=== PATIENT | male | born 1965 | race Caucasian/White ===

== ENCOUNTER 2023-03-13 10:57 | Outpatient (CLI) | payer MEDICARE, SELFPAY ==
[2023-03-13 19:41] LABS: Basophils Absolute Auto 0.1 K/mm3 (0.0-0.1); Basophils Percent Auto 1.2 % (0.2-1.2); Eosinophils Absolute Auto 0.2 K/mm3 (0-0.3); Eosinophils Percent Auto 3.4 % (0-4.4); Hematocrit 50.6 % (42.0-52.0); Hemoglobin 16.3 g/dL (14.0-18.0); Immature Granulocyte Absolute 0.01 K/mm3 (0.00-0.031); Immature Granulocyte Percent A 0.2 % (0-0.5); Lymphocytes Absolute Auto 1.71 K/mm3 (0.9-3.2); Lymphocytes Percent Auto 29.2 % (18.3-44.2); Mean Corpuscular HGB Conc 32.2 g/dl (32-36); Mean Corpuscular Hemoglobin 30.4 pg (26-34); Mean Corpuscular Volume 94.2 fl (80-100); Monocytes Absolute Auto 0.4 K/mm3 (0.1-0.6); Monocytes Percent Auto 7.2 % (2.6-8.5); Neutrophils Absolute Auto 3.4 K/mm3 (1.3-6.7); Neutrophils Percent Auto 58.8 % (45.5-73.1); Platelet Count Result 432 k/mm3 (150-375); Red Blood Count 5.37 M/mm3 (4.6-6.20); Red Cell Distribution Width 14.4 % (11.5-14.5); White Blood Count 5.9 K/mm3 (4.5-10.0)
[2023-03-13 19:51] LABS: Vitamin D 25 Hydroxy 23.1 ng/mL
[2023-03-13 19:57] LABS: Prostate Specific Antigen 1.7 ng/mL (< OR = 4.0)
[2023-03-13 20:05] LABS: Thyroid Stimulating Hormone Reflex 0.856 uIU/mL (0.465-4.68)
[2023-03-13 20:30] LABS: Alanine Aminotransferase 34 U/L (6-50); Albumin Level 4.9 g/dL (3.5-5.1); Alkaline Phosphatase 65 U/L (38-126); Anion Gap 8 mmol/L (8-16); Aspartate Amino Transferase 28 U/L (17-59); Bilirubin,Total 0.6 mg/dL (0.2-1.3); Blood Urea Nitrogen 12 mg/dL (9-20); Calcium 9.3 mg/dL (8.4-10.2); Carbon Dioxide 28 mmol/L (22-30); Chloride 103 mmol/L (98-107); Cholesterol 215 mg/dL (0-200); Estimated Glomerular Filt Rate > 60; Glucose 105 mg/dL (65-110); HDL Direct 46 mg/dL; Potassium 4.6 mmol/L (3.4-5.0); Sodium 139 mmol/L (137-145); Triglycerides 138 mg/dL (<150)
[2023-03-13 20:35] LABS: LDL Cholesterol Direct 122 mg/dL
[2023-03-18 18:21] LABS: Testosterone Free 72.9 pg/mL (35.0-155.0); Testosterone Total 450 ng/dL (250-1100)
== END 2023-03-13 10:58 | disposition home or self-care (01) ==
LOC: ANHGOSHLAB 10:59
PROVIDERS: PCP Family Medicine; Visit Provider Family Medicine
DX: R73.03 Prediabetes (principal); Z79.899 Other long term (current) drug therapy; Z12.5 Encounter for screening for malignant neoplasm of prostate; E29.1 Testicular hypofunction; Z13.29 Encounter for screening for other suspected endocrine disorder; E53.8 Deficiency of other specified B group vitamins; E55.9 Vitamin D deficiency, unspecified
CPT/HCPCS: 36415; 80053; 80061; 82306; 82607; 83036; 84153; 84402; 84403; 84443; 85025; G0103

== ENCOUNTER 2023-03-25 10:45 | Outpatient (CLI) | payer MEDICARE, SELFPAY ==
--- NOTE | ~2023-03-25 | CT_ITS ---
EXAMINATION:CT lung screening DATE: 03/25/2023 11:03 INDICATION: Tobacco use. Current smoker with 30 pack year history. TECHNIQUE: Computed tomography (CT) of the chest was performed without intravenous contrast. Automate d exposure control and iterative reconstruction technique were employed. The dose-length product (DLP ) was 92.93 mGy-cm. COMPARISON: CT abdomen 01/04/2016 FINDINGS: There is mild emphysema. No pleural effusion. The heart size is normal. There are coronary artery calcifications. No pericardial effusion. There is a gallstone in the gallbladder, which is nor mal in size. There are changes of disc replacement at C6-C7. IMPRESSION: 1. Lung-RADS category 1: Negative. Continue annual screening with noncontrast low-dose chest CT in 12 months. Reviewed, dictated and finalized at location A. IMPRESSION: 1. Lung-RADS category 1: Negative. Continue annual screening with noncontrast l ow-dose chest CT in 12 months.
== END 2023-03-25 10:46 | disposition home or self-care (01) ==
PROVIDERS: PCP Family Medicine; Visit Provider Family Medicine
DX: Z12.2 Encounter for screening for malignant neoplasm of respiratory organs (principal); F17.210 Nicotine dependence, cigarettes, uncomplicated
CPT/HCPCS: 71271

== ENCOUNTER 2023-10-04 10:16 | Outpatient (CLI) | payer MEDICARE, SELFPAY ==
[2023-10-04 12:01] LABS: Basophils Absolute Auto 0.1 K/mm3 (0.0-0.1); Basophils Percent Auto 1.1 % (0.2-1.2); Eosinophils Absolute Auto 0.3 K/mm3 (0-0.3); Eosinophils Percent Auto 5.5 % (0-4.4); Hematocrit 54.7 % (42.0-52.0); Hemoglobin 17.6 g/dL (14.0-18.0); Immature Granulocyte Absolute 0.01 K/mm3 (0.00-0.031); Immature Granulocyte Percent A 0.2 % (0-0.5); Lymphocytes Absolute Auto 1.71 K/mm3 (0.9-3.2); Lymphocytes Percent Auto 31.6 % (18.3-44.2); Mean Corpuscular HGB Conc 32.2 g/dl (32-36); Mean Corpuscular Hemoglobin 30.2 pg (26-34); Mean Platelet Volume 9.4 fl (7.4-10.4); Monocytes Absolute Auto 0.5 K/mm3 (0.1-0.6); Monocytes Percent Auto 8.3 % (2.6-8.5); Neutrophils Absolute Auto 2.9 K/mm3 (1.3-6.7); Neutrophils Percent Auto 53.3 % (45.5-73.1); Platelet Count Result 460 k/mm3 (150-375); Red Blood Count 5.82 M/mm3 (4.6-6.20); Red Cell Distribution Width 13.4 % (11.5-14.5); White Blood Count 5.4 K/mm3 (4.5-10.0)
[2023-10-04 12:17] LABS: Alanine Aminotransferase 33 U/L (6-50); Alkaline Phosphatase 64 U/L (38-126); Anion Gap 4 mmol/L (8-16); Aspartate Amino Transferase 40 U/L (17-59); Bilirubin,Total 1.3 mg/dL (0.2-1.3); Blood Urea Nitrogen 11 mg/dL (9-20); Carbon Dioxide 34 mmol/L (22-30); Chloride 101 mmol/L (98-107); Cholesterol 241 mg/dL (0-200); Estimated Glomerular Filt Rate > 60; Glucose 125 mg/dL (65-110); HDL Direct 47 mg/dL; Sodium 139 mmol/L (137-145); Triglycerides 160 mg/dL (<150)
[2023-10-04 12:32] LABS: LDL Cholesterol Direct 139 mg/dL
[2023-10-04 12:38] LABS: Thyroid Stimulating Hormone 0.941 uIU/mL (0.465-4.680)
[2023-10-04 17:52] LABS: Hemoglobin A1C 6.2 % (<5.7)
[2023-10-09 09:06] LABS: Testosterone Free 40.4 pg/mL (35.0-155.0); Testosterone Total 321 ng/dL (250-1100)
== END 2023-10-04 10:17 | disposition home or self-care (01) ==
PROVIDERS: PCP Family Medicine; Visit Provider Nurse Practitioner Family
DX: R73.03 Prediabetes (principal); Z00.00 Encounter for general adult medical examination without abnormal findings; Z13.29 Encounter for screening for other suspected endocrine disorder; E29.1 Testicular hypofunction; Z13.220 Encounter for screening for lipoid disorders; I10 Essential (primary) hypertension
CPT/HCPCS: 36415; 80053; 80061; 83036; 84402; 84403; 84443; 85025

== ENCOUNTER 2023-11-29 11:20 | Outpatient (CLI) | payer MEDICARE, SELFPAY ==
[2023-11-29 11:50] LABS: Basophils Percent Auto 0.7 % (0.2-1.2); Eosinophils Absolute Auto 0.2 K/mm3 (0-0.3); Eosinophils Percent Auto 3.8 % (0-4.4); Hematocrit 49.5 % (42.0-52.0); Hemoglobin 16.5 g/dL (14.0-18.0); Immature Granulocyte Absolute 0.02 K/mm3 (0.00-0.031); Immature Granulocyte Percent A 0.3 % (0-0.5); Lymphocytes Absolute Auto 1.75 K/mm3 (0.9-3.2); Lymphocytes Percent Auto 30.4 % (18.3-44.2); Mean Corpuscular HGB Conc 33.3 g/dl (32-36); Mean Corpuscular Hemoglobin 30.1 pg (26-34); Mean Corpuscular Volume 90.3 fl (80-100); Mean Platelet Volume 8.8 fl (7.4-10.4); Monocytes Absolute Auto 0.5 K/mm3 (0.1-0.6); Monocytes Percent Auto 8.7 % (2.6-8.5); Neutrophils Absolute Auto 3.2 K/mm3 (1.3-6.7); Neutrophils Percent Auto 56.1 % (45.5-73.1); Platelet Count Result 436 k/mm3 (150-375); Red Blood Count 5.48 M/mm3 (4.6-6.20); Red Cell Distribution Width 13.8 % (11.5-14.5); White Blood Count 5.8 K/mm3 (4.5-10.0)
[2023-11-29 17:10] LABS: Erythrocyte Sedimentation Rate 5 mm/hr (0-20)
[2023-11-29 19:45] LABS: Alanine Aminotransferase 20 U/L (6-50); Albumin Level 4.7 g/dL (3.5-5.1); Alkaline Phosphatase 62 U/L (38-126); Anion Gap 6 mmol/L (8-16); Aspartate Amino Transferase 54 U/L (17-59); Blood Urea Nitrogen 10 mg/dL (9-20); CRP < 0.5 mg/dL (<1.0); Calcium 9.6 mg/dL (8.4-10.2); Carbon Dioxide 32 mmol/L (22-30); Chloride 102 mmol/L (98-107); Estimated Glomerular Filt Rate > 60; Glucose 78 mg/dL (65-110); Potassium 4.4 mmol/L (3.4-5.0); Sodium 140 mmol/L (137-145)
[2023-12-02 19:41] LABS: Erythropoietin (EPO) 6.3 mIU/mL (2.6-18.5)
[2023-12-04 12:20] LABS: Block/Specimen ID Not Given; CALR Exon 9 Mutation Not Detected (Not Detected); CSF3R Exon 14/17 Mutation Not Detected (Not Detected); JAK2 Exon 12 Mutation Not Detected (Not Detected); JAK2 V617F Mutation Not Detected (Not Detected); MPL Exon 10 Mutation Not Detected (Not Detected); Specimen Source Blood
== END 2023-11-29 11:21 | disposition home or self-care (01) ==
LOC: ANHLAB 11:21
PROVIDERS: PCP Family Medicine; Visit Provider Internal Medicine Hematology & Oncology
DX: D47.3 Essential (hemorrhagic) thrombocythemia (principal)
CPT/HCPCS: 36415; 80053; 81219; 81270; 81279; 81339; 81479; 82668; 82728; 85025; 85652; 86140

== ENCOUNTER 2024-04-03 10:02 | Outpatient (CLI) | payer MEDICARE, SELFPAY ==
[2024-04-03 19:38] LABS: Basophils Absolute Auto 0.1 K/mm3 (0.0-0.1); Basophils Percent Auto 0.8 % (0.2-1.2); Eosinophils Absolute Auto 0.3 K/mm3 (0-0.3); Eosinophils Percent Auto 5.3 % (0-4.4); Hematocrit 51.1 % (42.0-52.0); Hemoglobin 16.4 g/dL (14.0-18.0); Immature Granulocyte Absolute 0.02 K/mm3 (0.00-0.031); Immature Granulocyte Percent A 0.3 % (0-0.5); Lymphocytes Absolute Auto 1.53 K/mm3 (0.9-3.2); Lymphocytes Percent Auto 23.8 % (18.3-44.2); Mean Corpuscular HGB Conc 32.1 g/dl (32-36); Mean Corpuscular Hemoglobin 30.3 pg (26-34); Mean Corpuscular Volume 94.5 fl (80-100); Monocytes Absolute Auto 0.5 K/mm3 (0.1-0.6); Monocytes Percent Auto 7.9 % (2.6-8.5); Neutrophils Percent Auto 61.9 % (45.5-73.1); Platelet Count Result 466 k/mm3 (150-375); Red Blood Count 5.41 M/mm3 (4.6-6.20); Red Cell Distribution Width 13.9 % (11.5-14.5); White Blood Count 6.4 K/mm3 (4.5-10.0)
[2024-04-03 19:54] LABS: Alanine Aminotransferase 21 U/L (6-50); Albumin Level 4.8 g/dL (3.5-5.1); Alkaline Phosphatase 64 U/L (38-126); Anion Gap 6 mmol/L (4-12); Aspartate Amino Transferase 35 U/L (17-59); Bilirubin,Total 0.6 mg/dL (0.2-1.3); Blood Urea Nitrogen 11 mg/dL (9-20); Calcium 9.8 mg/dL (8.4-10.2); Carbon Dioxide 30 mmol/L (22-30); Chloride 107 mmol/L (98-107); Cholesterol 221 mg/dL (0-200); Estimated Glomerular Filt Rate > 60; Glucose 112 mg/dL (65-110); HDL Direct 43 mg/dL; Potassium 4.8 mmol/L (3.4-5.0); Sodium 143 mmol/L (137-145); Triglycerides 169 mg/dL (<150)
[2024-04-03 20:05] LABS: LDL Cholesterol Direct 132 mg/dL
[2024-04-03 20:28] LABS: Vitamin D 25 Hydroxy 37.1 ng/mL
[2024-04-03 21:10] LABS: Hemoglobin A1C 6.4 % (<5.7)
[2024-04-07 11:12] LABS: Testosterone Total 640 ng/dL (250-1100)
== END 2024-04-03 10:03 | disposition home or self-care (01) ==
LOC: ANHGOSHLAB 10:04
PROVIDERS: PCP Family Medicine; Visit Provider Nurse Practitioner Family
DX: Z12.5 Encounter for screening for malignant neoplasm of prostate (principal); E29.1 Testicular hypofunction; E55.9 Vitamin D deficiency, unspecified; R73.03 Prediabetes; R79.89 Other specified abnormal findings of blood chemistry; Z13.29 Encounter for screening for other suspected endocrine disorder
CPT/HCPCS: 36415; 80053; 80061; 82306; 83036; 84153; 84403; 84443; 85025; G0103

== ENCOUNTER 2024-04-17 07:51 | Outpatient (CLI) | payer MEDICARE, SELFPAY ==
--- NOTE | ~2024-04-17 | CT_ITS ---
CT Scan of the Chest without Contrast: Clinical Indication: Lung cancer screening, nicotine dependence Technique: Contiguous sections were acquired throughout the chest without intravenous contrast. Dose reduction technique was used on this scan by utilizing automated exposure control and iterative recon struction technique. The dose-length product (DLP) was 96.01 mGy-cm. COMPARISON: 03/25/2023 Findings: There is no evidence of any significant mediastinal, hilar or axillary lymphadenopathy. Coronary timur ry calcifications are present. There is no evidence of pleural or pericardial effusion. The lungs are clear. No pulmonary nodules or infiltrates are noted. Images through the upper abdomen reveal no abnormalities. Impression: Lung RADS 1: Negative. 12 month follow-up screening CT advised. Reviewed, dictated and finalized at location . Impression: Lung RADS 1: Negative. 12 month follow-up screening CT advised.
== END 2024-04-17 07:52 | disposition home or self-care (01) ==
LOC: ANHIMG 07:54
PROVIDERS: PCP Family Medicine; Visit Provider Internal Medicine Hematology & Oncology
DX: Z12.2 Encounter for screening for malignant neoplasm of respiratory organs (principal); Z87.891 Personal history of nicotine dependence
CPT/HCPCS: 71271

== ENCOUNTER 2024-10-22 09:03 | Outpatient (CLI) | payer MEDICARE, SELFPAY ==
[2024-10-22 09:16] LABS: Basophils Absolute Auto 0.1 K/mm3 (0.0-0.1); Basophils Percent Auto 0.7 % (0.2-1.2); Eosinophils Absolute Auto 0.4 K/mm3 (0-0.3); Eosinophils Percent Auto 5.1 % (0-4.4); Hematocrit 49.7 % (42.0-52.0); Hemoglobin 16.7 g/dL (14.0-18.0); Immature Granulocyte Absolute 0.03 K/mm3 (0.00-0.031); Immature Granulocyte Percent A 0.4 % (0-0.5); Lymphocytes Absolute Auto 1.88 K/mm3 (0.9-3.2); Lymphocytes Percent Auto 22.2 % (18.3-44.2); Mean Corpuscular HGB Conc 33.6 g/dl (32-36); Mean Corpuscular Hemoglobin 30.8 pg (26-34); Mean Corpuscular Volume 91.5 fl (80-100); Mean Platelet Volume 9.9 fl (7.4-10.4); Monocytes Absolute Auto 0.6 K/mm3 (0.1-0.6); Monocytes Percent Auto 6.7 % (2.6-8.5); Neutrophils Absolute Auto 5.5 K/mm3 (1.3-6.7); Neutrophils Percent Auto 64.9 % (45.5-73.1); Platelet Count Result 336 k/mm3 (150-375); Red Blood Count 5.43 M/mm3 (4.6-6.20); Red Cell Distribution Width 13.4 % (11.5-14.5); White Blood Count 8.5 K/mm3 (4.5-10.0)
== END 2024-10-22 09:04 | disposition home or self-care (01) ==
LOC: ANHLAB 09:05
PROVIDERS: PCP Family Medicine; Visit Provider Internal Medicine Hematology & Oncology
DX: D47.3 Essential (hemorrhagic) thrombocythemia (principal)
CPT/HCPCS: 36415; 85025

== ENCOUNTER 2024-11-28 10:13 | Outpatient (CLI) | payer MEDICARE, SELFPAY ==
[2024-11-28 15:11] LABS: Basophils Absolute Auto 0.1 K/mm3 (0.0-0.1); Eosinophils Absolute Auto 0.9 K/mm3 (0-0.3); Eosinophils Percent Auto 12.4 % (0-4.4); Hematocrit 49.2 % (42.0-52.0); Hemoglobin 16.1 g/dL (14.0-18.0); Immature Granulocyte Absolute 0.02 K/mm3 (0.00-0.031); Immature Granulocyte Percent A 0.3 % (0-0.5); Lymphocytes Absolute Auto 1.87 K/mm3 (0.9-3.2); Lymphocytes Percent Auto 27.2 % (18.3-44.2); Mean Corpuscular HGB Conc 32.7 g/dl (32-36); Mean Corpuscular Hemoglobin 30.3 pg (26-34); Mean Corpuscular Volume 92.7 fl (80-100); Mean Platelet Volume 9.4 fl (7.4-10.4); Monocytes Absolute Auto 0.6 K/mm3 (0.1-0.6); Monocytes Percent Auto 8.1 % (2.6-8.5); Neutrophils Absolute Auto 3.5 K/mm3 (1.3-6.7); Platelet Count Result 534 k/mm3 (150-375); Red Blood Count 5.31 M/mm3 (4.6-6.20); Red Cell Distribution Width 13.4 % (11.5-14.5); White Blood Count 6.9 K/mm3 (4.5-10.0)
[2024-11-28 15:26] LABS: Creatinine Urine 163.2 mg/dL
[2024-11-28 15:27] LABS: Alanine Aminotransferase 18 U/L (6-50); Albumin Level 4.6 g/dL (3.5-5.1); Alkaline Phosphatase 71 U/L (38-126); Anion Gap 2 mmol/L (4-12); Aspartate Amino Transferase 46 U/L (17-59); Bilirubin,Total 0.7 mg/dL (0.2-1.3); Blood Urea Nitrogen 10 mg/dL (9-20); Calcium 9.4 mg/dL (8.4-10.2); Carbon Dioxide 34 mmol/L (22-30); Chloride 105 mmol/L (98-107); Cholesterol 223 mg/dL (0-200); Estimated Glomerular Filt Rate > 60; Glucose 107 mg/dL (65-110); HDL Direct 38 mg/dL; Potassium 4.5 mmol/L (3.4-5.0); Sodium 141 mmol/L (137-145); Triglycerides 169 mg/dL (<150)
[2024-11-28 15:34] LABS: MALB Creatinine Ratio 11.6 mg/g (0-30); Microalbumin Urine Random 18.9 mg/L (0-16.7)
[2024-11-28 15:38] LABS: LDL Cholesterol Direct 118 mg/dL
[2024-11-28 17:01] LABS: Hemoglobin A1C 6.6 % (<5.7)
== END 2024-11-28 10:14 | disposition home or self-care (01) ==
PROVIDERS: PCP Family Medicine; Visit Provider Nurse Practitioner Family
DX: E78.5 Hyperlipidemia, unspecified (principal); E11.9 Type 2 diabetes mellitus without complications; I10 Essential (primary) hypertension
CPT/HCPCS: 36415; 80053; 80061; 82043; 83036; 85025

== ENCOUNTER 2025-04-24 09:39 | Outpatient (CLI) | payer MEDICARE, SELFPAY ==
--- OUTSIDE RECORDS SUMMARY | 2025-04-24 09:49 | XMS_ITS | Referral Summary ---
Author Organization [facility] Address [address] [place] [address] Care Team Providers Care Nibbler Operator Name Role Phone Amanda Marcano MD Primary Care Provider Allergies No known active allergies Medications HYDROcodone-kan taminophen (NORCO) 7.5-325 mg per tabletIndicatio ns:Pain Take 1 tablet by mouth every 4 (four) hours as needed for pain 16 tablet 10/15/20 Active Additional Information Patient not taking.Reported on 11/08/2020 tamsulosin (FLOMAX) 0.4 mg extended release capsuleIndicati ons:benign prostatic hyperplasia with lower urinary tract sx Take 1 capsule (0.4 mg total) by mouth daily 90 capsule 3 11/08/20 Active Additional Information Patient not taking.Reported on 11/08/2020 simvastatin (ZOCOR) 80 mg tablet Take 80 mg by mouth daily 08/25/20 20 Active testosterone cypionate (DEPO-TESTOTERO NE) 200 mg/mL injection INJECT 0.5ML INTRAMUSCULARLY EVERY 2 WEEKS 08/18/20 20 Active cyclobenzaprine (FLEXERIL) 5 mg tablet Take 5 mg by mouth 3 (three) times a day as needed for muscle spasms Active Active Problems No known active problems Social History Tobacco Use Types Packs/Day Years Used Date Smoking Tobacco: Every Day Tobacco Cessation:Ready to Q uit: No; Counseling Given: Yes Sex and Gender Information Value Date Recorded Sex Assigned at Not on file Legal Sex Male 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 Gender Identity Not on file Sexual Orientation Not on file Last Filed Vital Signs Vital Sign Reading Time Taken Comments Blood Pressure 120/82 11/08/2020 4:39 PM MICROWAVE ENGINEER Pulse 82 11/08/2020 4:39 PM MICROWAVE ENGINEER Temperature 36.7 C (98 F) 11/08/2020 4:39 PM MICROWAVE ENGINEER Respiratory Rate 11 10/15/2020 2:50 PM MICROWAVE ENGINEER Oxygen Saturation 96% 10/15/2020 2:50 PM MICROWAVE ENGINEER Inhaled Oxygen Concentration - - Weight 77.1 kg (170 lb) 11/08/2020 4:39 PM MICROWAVE ENGINEER Height 165.1 cm (5' 5) 11/08/2020 4:39 PM MICROWAVE ENGINEER Body Mass Index 28.29 11/08/2020 4:39 PM MICROWAVE ENGINEER Plan of Treatment Not on file Insurance MEDICARE MEDICARE Care Teams Nibbler Operator Relationship Specialty Start Date End Date Amanda Marcano MD PCP - General 10/15/20
--- OUTSIDE RECORDS SUMMARY | 2025-04-24 09:49 | XMS_ITS | Clinical Summary ---
Author Organization [facility] Kandis muniz Jesús Address [address] [place] [address] Care Team Providers Care Greeting Card Maker Name Role Phone Cristin Mcmahon MD Primary Care Provider Allergies No known active allergies Medications cyclobenzaprin e (FLEXERIL) 5 mg Tablet Take 5 mg by mouth. Active atorvastatin (LIPITOR) 40 mg tablet Take 40 mg by mouth daily. Active Cholecalcifero l, Vitamin D3, 50 mcg (2,000 unit) Capsule Take by mouth. A ctive omeprazole (PriLOSEC) 20 mg Capsule, Delayed Release(E.C.) Take 20 mg by mouth daily. Active Testosterone Enanthate (DELATESTRYL) 200 mg/mL Oil Inject 50 mg by intramuscular injection one time only. Active albuterol sulfate HFA 90 mcg/actuation aerosol inhaler Take 2 Puffs by inhalation every 6 hours as needed for Shortness of Breath. Active fluticasone propionate (FLONASE) 50 mcg/spray [place], Suspension nasal inhaler Administer 2 Sprays in each nostril daily. Active aspirin (ECOTRIN EC) 81 mg Tablet, Delayed Release (E.C.) Take 81 mg by mouth daily. Active lisinopriL (PRINIVIL) 10 mg tablet Take 1 Tablet by mouth daily. Active Active Problems No known active problems Encounters Date Type Department Care Team Description 02/02/2025 External Device Data STL ABSTRACTION Provider, Abstract from Last 3 Months Family History Relation Name Status Comments Brother Alive Daughter Alive Father Mother Alive Sister 1 Alive Sister 2 Alive Social History Tobacco Use Types Packs/Day Years Used Date Smoking Tobacco: Every Day Cigarettes 0.5 2.1 Started: 03/26/2023 Smokeless Tobacco: Never Tobacco Cessation:Ready to Q uit: Not Asked; Counseling Given: Not Answered Alcohol Use Standard Drinks/Week Comments Never 0 (1 standard drink = 0.6 oz pur e alcohol) Sex and Gender Information Value Date Recorded Sex Assigned at Not on file Legal Sex Male 5:11 AM VULCANIZING MACHINE OPERATOR Gender Identity Not on file Sexual Orientation Not on file Last Filed Vital Signs Vital Sign Reading Time Taken Comments Blood Pressure 144/93 10/22/2024 9:34 AM VULCANIZING MACHINE OPERATOR Pulse 98 10/22/2024 9:31 AM VULCANIZING MACHINE OPERATOR Temperature 36.8 C (98.2 F) 10/22/2024 9:31 AM VULCANIZING MACHINE OPERATOR Respiratory Rate 16 10/22/2024 9:31 AM VULCANIZING MACHINE OPERATOR Oxygen Saturation 96% 10/22/2024 9:31 AM VULCANIZING MACHINE OPERATOR Inhaled Oxygen Concentration - - Weight 69.9 kg (154 lb 3.2 oz) 10/22/2024 9:31 A M VULCANIZING MACHINE OPERATOR Height 165.1 cm (5' 5) 11/29/2023 10:28 AM VULCANIZING MACHINE OPERATOR Body Mass Index 25.66 11/29/2023 10:28 AM VULCANIZING MACHINE OPERATOR Plan of Treatment Upcoming Encounters Date Type Department Care Team (Late st Contact Info) Description 04/24/2025 10:00 AM CDT Office Visit [facility] Oncology and Hematology - Michele [address] [place] [address] [facility] [address] [place] [address] Binh Gavin MD [address] [facility] [address] [place] [address] Health Maintenance Due Date Last Done Comments Pre-Diabetes and Diabetes Screening 1965 DTAP/TDAP/TD VACCINES (1 - Tdap) 1984 HEPATITIS B VACCINES (1 of 3 - 19+ 3-dose series) 10/26 COLORECTAL SCREENING 2010 Colorectal Cancer Screening 2010 FIT-DNA Q 3 years 2010 FIT/FOBT Q 1 year 2010 Flex Sig/CT Colonography Q 5 years 2010 ZOSTER VACCINE (1 of 2) 2015 INFLUENZA VACCINE (#1) 2024 Abdominal Aortic Aneurysm (AAA) Screening Completed 10/15/2020 Insurance Care Teams Greeting Card Maker Relationship Specialty Start Date End Date Cristin Mcmahon MD [address] [place] [address] PCP - General Family Practice 11/29/23
--- OUTSIDE RECORDS SUMMARY | 2025-04-24 09:49 | XMS_ITS | CONTINUITY OF CARE DOCUMENT ---
Author Name shaq new Address Unknown Organization [facility] Office Address [address] [facility] [address] [place] [address] Phone [phone] Care Team Providers Care Experimental Psychologist Name Role Phone shaq new Unavailable Unavailable
--- OUTSIDE RECORDS SUMMARY | 2025-04-24 09:49 | XMS_ITS | Clinical Summary ---
Author Organization [facility] Address [address] [place] [address] Phone Care Team Providers Care Miller Head Wet Process Name Role Phone Semaj Llamas MD Primary Care Provider Social History Tobacco Use Types Packs/Day Years Used Date Smoking Tobacco: Never Assessed Sex and Gender Information Value Date Recorded Sex Assigned at Not on file Legal Sex Male 10:28 PM CDT Gender Identity Not on file Sexual Orientation Not on file Plan of Treatment Health Maintenance Due Date Last Done Comments Hepatitis C Virus (HCV) Screening 1965 TdaP Immunization 1965 Hepatitis B Immunization (1 of 3 - 19+ 3-dose series) 1984 Colonoscopy 2010 Colorectal Cancer Screening 2010 Cologuard 2015 Immunochemical Fecal Occult Blood 2015 Pneumococcal Immunization (5 0+ years) (1 of 1 - PCV) 2015 Zoster Immunization (1 of 2) 2015 PSA Discussion 2020 Influenza Immunization (#1) 2024 SARS-COV-2 Immunization (2023- season) 2024 Respiratory Syncytial Virus (RSV) Immunization (Adult) (1 - 1-dose 75+ series) 2040 Meningococcal Immunization (ACWY) Aged Out No longer eligible based on patient's age to complete this topic Pneumococcal Immunization Combined Aged Out No longer eligible based on patient's age to complete this topic Rotavirus Immunization Aged Out No lo nger eligible based on patient's age to complete this topic Insurance MEDICARE Care Teams Miller Head Wet Process Relationship Specialty Start Date End Date Semaj Llamas MD [address] [place] [address] PCP - General Family Medicine 11/13/18
--- OUTSIDE RECORDS SUMMARY | 2025-04-24 09:49 | XMS_ITS | Encounter Summary ---
Author Organization [facility] Address 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 Gender Identity Not on file Sexual Orientation Not on file documented as of this encounter Plan of Treatment Upcoming Encounters Date Type Department Care Team (Late st Contact Info) Description 04/24/2025 10:00 AM CDT Office Visit [facility] Oncology and Hematology - [place] [address] [place] [address] [facility] [address] [place] [address] Binh Gavin MD [address] [facility] [address] [place] [address] documented as of this encounter Visit Diagnoses Diagnosis Displacement of lumbar intervertebral disc without myelopathy- Primary documented in this encounter Care Teams Quality Review Trainer Relationship Specialty Start Date End Date Cristin Mcmahon MD [address] [place] [address] PCP - General Family Practice 11/29/23 documented as of this encounter
--- OUTSIDE RECORDS SUMMARY | 2025-04-24 09:49 | XMS_ITS | Clinical Summary ---
Author Organization [facility] Address [address] [place] [address] Care Team Providers Care Assistant Superintendent For Curriculum Name Role Phone Amanda Marcano MD Primary [...] Take 80 mg by mouth daily 08/25/20 Active testosterone cypionate (DEPO-TESTOTERO NE) 200 mg/mL injection INJECT 0.5ML INTRAMUSCULARLY EVERY 2 WEEKS 08/18/20 20 Active cyclobenzaprine (FLEXERIL) 5 mg tablet Take 5 mg by mouth 3 (three) times a day as needed for muscle spasms Active Active Problems No known active problems Surgical History Surgery Date Site/Laterality Comments NECK SURGERY Medical History Medical History Date Comments Kidney stone Bleeding disorder Peptic ulceration Back pain Anxiety Depression Family History Medical History Relation Name Comments Diabetes Father Heart disease Father Relation Name Status Comments Father Social History Tobacco Use Types Packs/Day Years Used Date Smoking Tobacco: Every Day Tobacco Cessation:Ready to Q uit: No; Counseling Given: Yes Sex and Gender Information Value Date Recorded Sex Assigned at Not on file Legal Sex Male 10:30 AM MOTOR COACH OPERATOR Gender Identity Not on file Sexual Orientation Not on file Obstetrics History Last Filed Vital Signs Vital Sign Reading Time Taken Comments Blood Pressure 120/82 11/08/2020 4:39 PM MOTOR COACH OPERATOR Pulse 82 11/08/2020 4:39 PM MOTOR COACH OPERATOR Temperature 36.7 C (98 F) 11/08/2020 4:39 PM MOTOR COACH OPERATOR Respiratory Rate 11 10/15/2020 2:50 PM MOTOR COACH OPERATOR Oxygen Saturation 96% 10/15/2020 2:50 PM MOTOR COACH OPERATOR Inhaled Oxygen Concentration - - Weight 77.1 kg (170 lb) 11/08/2020 4:39 PM MOTOR COACH OPERATOR Height 165.1 cm (5' 5) 11/08/2020 4:39 PM MOTOR COACH OPERATOR Body Mass Index 28.29 11/08/2020 4:39 PM MOTOR COACH OPERATOR Plan of Treatment Not on file Insurance MEDICARE MEDICARE [address] [place] [id number] Care Teams Assistant Superintendent For Curriculum Relationship Specialty Start Date End Date Amanda Marcano MD PCP - General 10/15/20
[2025-04-24 09:56] LABS: Hematocrit 47.5 % (42.0-52.0); Mean Corpuscular HGB Conc 33.7 g/dl (32-36); Mean Corpuscular Hemoglobin 30.5 pg (26-34); Mean Corpuscular Volume 90.5 fl (80-100); Mean Platelet Volume 9.1 fl (7.4-10.4); Platelet Count Result 511 k/mm3 (150-375); Red Blood Count 5.25 M/mm3 (4.6-6.20); White Blood Count 6.2 K/mm3 (4.5-10.0)
[2025-04-24 09:59] LABS: Blood Urea Nitrogen 11 mg/dL (8-26); Carbon Dioxide 28 mmol/L (22-30); Chloride 97 mmol/L (98-109); Estimated Glomerular Filt Rate > 60; Glucose 155 mg/dL (70-105); Ionized Calcium (POC) 1.16 mmol/L (1.11-1.31); Potassium 4.1 mmol/L (3.5-4.9); Sodium 138 mmol/L (138-146)
== END 2025-04-24 09:40 | disposition home or self-care (01) ==
PROVIDERS: PCP Family Medicine; Visit Provider Internal Medicine Hematology & Oncology
DX: D47.3 Essential (hemorrhagic) thrombocythemia (principal)
CPT/HCPCS: 36415; 80047; 85027

== ENCOUNTER 2025-07-16 10:55 | Outpatient (CLI) | payer MEDICARE, SELFPAY ==
--- OUTSIDE RECORDS SUMMARY | 2025-07-16 11:39 | XMS_ITS | Clinical Summary ---
Author Organization [facility] Address [address] [place] [address] Phone Care Team Providers Care Vending Machine Technician Name Role Phone Semaj Llamas MD Primary Care Provider [phone] Social History Tobacco Use Types Packs/Day Years [...] of 3 - 19+ 3-dose series) 1984 Cologuard 2010 Colonoscopy 2010 Colorectal Cancer Screening 2010 Immunochemical Fecal Occult Blood 2010 Pneumococcal Immunization (5 0+ years) (1 of 1 - PCV) 2015 Zoster Immunization (1 of 2) 2015 SARS-COV-2 Immunization ( - 2023- season) 2024 Influenza Immunization (#1) 2025 Respiratory Syncytial Virus (RSV) Immunization (Adult) (1 - 1-dose 75+ series) 2040 Human Papillomavirus (HPV) Immunization Aged Out No longer eligible b ased on patient's age to complete this topic Meningococcal Immunization (ACWY) Aged Out No longer eligible based on patient's age to complete this topic Rotavirus Immunization Aged Out No lo nger eligible based on patient's age to complete this topic Insurance MEDICARE Care Teams Vending Machine Technician Relationship Specialty Start Date End Date Semaj Llamas MD [address] [place] [address] PCP - General Family Medicine 11/13/18
--- OUTSIDE RECORDS SUMMARY | 2025-07-16 11:39 | XMS_ITS | Encounter Summary ---
Author Organization [facility] Address [address] [place] [address] Care Team Providers Care Retail Store Assistant Name Role Phone Cristin Mcmahon MD Primary Care Provider Encounter Details Date Type Department Care Team (Latest Contact Info) Description 02/10/2003 Outpatient Historical [facility] Reid Tao MD [address] [place] [address] LUMBAR DISC DISPLACEMENT (Primary Dx) Social History Tobacco Use Types Packs/Day Years Used Date Smoking Tobacco: Never Assessed Sex and Gender Information Value Date Recorded Sex Assigned at Not on file Legal Sex Male 5:11 AM SORTING AND FOLDING 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 Gender Identity Not on file Sexual Orientation Not on file documented as of this encounter Plan of Treatment Upcoming Encounters Date Type Department Care Team (Late st Contact Info) Description 10/30/2025 10:15 AM SORTING AND FOLDING SUPERVISOR Office Visit [facility] Oncology and Hematology - Michele [address] [facility] [address] [place] [address] Binh Gavin MD [address] [facility] [address] [place] [address] documented as of this encounter Visit Diagnoses Diagnosis Displacement of lumbar intervertebral disc without myelopathy- Primary documented in this encounter Care Teams Retail Store Assistant Relationship Specialty Start Date End Date Cristin Mcmahon MD [address] [place] [address] PCP - General Family Practice 11/29/23 documented as of this encounter
--- OUTSIDE RECORDS SUMMARY | 2025-07-16 11:39 | XMS_ITS | Clinical Summary ---
Author Organization [facility] Address [address] [place] [address] Care Team Providers Care Bench Molder Name Role Phone Amanda Marcano MD Primary [...] by mouth daily 90 capsule 3 11/08/20 20 Active Additional Information Patient not taking.Reported on [...] on file Legal Sex Male 10:30 AM FIELD STAFF Gender Identity Not on file Sexual Orientation Not on file Obstetrics History Last Filed Vital Signs Vital Sign Reading Time Taken Comments Blood Pressure 120/82 11/08/2020 4:39 PM FIELD STAFF Pulse 82 11/08/2020 4:39 PM FIELD STAFF Temperature 36.7 C (98 F) 11/08/2020 4:39 PM FIELD STAFF Respiratory Rate 11 10/15/2020 2:50 PM FIELD STAFF Oxygen Saturation 96% 10/15/2020 2:50 PM FIELD STAFF Inhaled Oxygen Concentration - - Weight 77.1 kg (170 lb) 11/08/2020 4:39 PM FIELD STAFF Height 165.1 cm (5' 5) 11/08/2020 4:39 PM FIELD STAFF Body Mass Index 28.29 11/08/2020 4:39 PM FIELD STAFF Plan of Treatment Not on file Insurance MEDICARE MEDICARE [address] [place] [id number] Care Teams Bench Molder Relationship Specialty Start Date End Date Amanda Marcano MD PCP - General 10/15/20
--- OUTSIDE RECORDS SUMMARY | 2025-07-16 11:39 | XMS_ITS | Clinical Summary ---
Author Organization [facility] Kandis Espinosa Address [address] [place] [address] Care Team Providers Care Insole Rasper Name Role Phone Cristin Mcmahon MD Primary [...] Breath. Active fluticasone propionate (FLONASE) 50 mcg/spray [place], Suspension nasal inhaler Administer 2 Sprays in each nostril daily. Active aspirin (ECOTRIN EC) 81 mg Tablet, Delayed Release (E.C.) Take 81 mg by mouth daily. Active lisinopriL (PRINIVIL) 10 mg tablet Take 1 Tablet by mouth daily. 4 Active Active Problems No known active problems Encounters Date Type Department Care Team Description 06/10/2025 External Device Data STL ABSTRACTION Provider, Abstract 05/01/2025 Orders Only [facility] Oncology and Hematology - Michele [address] [place] [address] Binh Gavin MD 04/27/2025 Orders Only [facility] Oncology and Hematology [facility] [address] [place] [address] Binh Gavin MD 04/24/2025 10:00 AM CDT Office Visit [facility] Oncology and Hematology [facility] [address] [facility] [address] [place] [address] Binh Gavin MD Screening for lung cancer (Primary Dx) from Last 3 Months Family History Relation Name Status Comments Brother Alive Daughter Alive Father Mother Alive Sister 1 Alive Sister 2 Alive Social History Tobacco Use Types Packs/Day Years Used Date Smoking Tobacco: Every Day Cigarettes 0.5 2.3 Started: 03/26/2023 Smokeless Tobacco: Never Tobacco Cessation:Ready to Q uit: Not Asked; Counseling Given: Not Answered Alcohol Use Standard Drinks/Week Comments Never 0 (1 standard drink = 0.6 oz pur e alcohol) Sex and Gender Information Value Date Recorded Sex Assigned at Not on file Legal Sex Male 5:11 AM CERTIFIED SOLID WASTE FACILITY OPERATOR Gender Identity Not on file Sexual Orientation Not on file Last Filed Vital Signs Vital Sign Reading Time Taken Comments Blood Pressure 148/84 04/24/2025 10:01 AM CDT Pulse 99 04/24/2025 9:57 AM CDT Temperature 36.8 C (98.3 F) 04/24/2025 9:57 AM CDT Respiratory Rate 15 04/24/2025 9:57 AM CDT Oxygen Saturation 97% 04/24/2025 9:57 AM CDT Inhaled Oxygen Concentration - - Weight 69.9 kg (154 lb 3.2 oz) 04/24/2025 9:57 A M CDT Height 165.1 cm (5' 5) 11/29/2023 10:28 AM CERTIFIED SOLID WASTE FACILITY OPERATOR Body Mass Index 25.66 11/29/2023 10:28 AM CERTIFIED SOLID WASTE FACILITY OPERATOR Plan of Treatment Upcoming Encounters Date Type Department Care Team (Late st Contact Info) Description 10/30/2025 10:15 AM CERTIFIED SOLID WASTE FACILITY OPERATOR Office Visit [facility] Oncology and Hematology [facility] [address] [place] [address] Binh Gavin MD [address] [facility] [address] [place] [address] Health Maintenance Due Date Last Done Comments Pre-Diabetes and Diabetes Screening 1965 DTAP/TDAP/TD VACCINES (1 - Tdap) 1984 HEPATITIS B VACCINES (1 of 3 - 19+ 3-dose series) 10/26 COLORECTAL SCREENING 2010 Colorectal Cancer Screening 2010 FIT-DNA Q 3 years 2010 FIT/FOBT Q 1 year 2010 Flex Sig/CT Colonography Q 5 years 2010 ZOSTER VACCINE (1 of 2) 2015 INFLUENZA VACCINE (#1) 2025 Abdominal Aortic Aneurysm (AAA) Screening Completed 10/15/2020 Procedures Procedure Name Priority Date/Time Associated Diagnosis Comments CBC WITH DIFFERENTIAL Routine 04/24/2025 4:20 PM CDT BASIC METABOLIC PANEL Routine 04/24/2025 12:26 PM CDT from Last 3 Months Results * CBC WITH DIFFERENTIAL (04/24/2025 4:20 PM CDT) Blood us Binh Gavin MD HEMATOLOGY ORDERABLES Final Res ult * BASIC METABOLIC PANEL (04/24/2025 12:26 PM CDT) Blood us Binh Gavin MD CHEMISTRY ORDERABLES Final Resu lt from Last 3 Months Insurance [facility] [id number] [facility] [id number] [facility] Address: [address] [address] [place] [address] Care Teams Insole Rasper Relationship Specialty Start Date End Date Cristin Mcmahon MD [address] [place] [address] PCP - General Family Practice 11/29/23
[2025-07-16 12:58] LABS: Hematocrit 49.6 % (42.0-52.0); Hemoglobin 16.1 g/dL (14.0-18.0); Immature Granulocyte Percent A 0.4 % (0-0.5); Lymphocytes Absolute Auto 1.61 K/mm3 (0.9-3.2); Mean Corpuscular HGB Conc 32.5 g/dl (32-36); Mean Corpuscular Hemoglobin 30.1 pg (26-34); Mean Corpuscular Volume 92.9 fl (80-100); Nucleated Red Blood Cells Absolute Auto 0.000 K/mm3 (0.0-0.012); Nucleated Red Blood Cells Perc 0.0 % (0.0-0.2); Platelet Count Result 562 k/mm3 (150-375); Red Blood Count 5.34 M/mm3 (4.6-6.20); White Blood Count 9.1 K/mm3 (4.5-10.0)
[2025-07-16 13:07] LABS: Alanine Aminotransferase 19 U/L (6-50); Albumin Level 5.0 g/dL (3.5-5.1); Alkaline Phosphatase 58 U/L (38-126); Anion Gap 8 mmol/L (4-12); Aspartate Amino Transferase 54 U/L (17-59); Bilirubin,Total 0.6 mg/dL (0.2-1.3); Blood Urea Nitrogen 12 mg/dL (9-20); Calcium 10.1 mg/dL (8.4-10.2); Carbon Dioxide 31 mmol/L (22-30); Chloride 99 mmol/L (98-107); Cholesterol 256 mg/dL (0-200); Estimated Glomerular Filt Rate > 60; Glucose 145 mg/dL (65-110); HDL Direct 40 mg/dL; Magnesium 2.2 mg/dL (1.6-2.3); Potassium 4.6 mmol/L (3.4-5.0); Sodium 138 mmol/L (137-145); Total Protein 8.8 g/dL (6.3-8.2); Triglycerides 179 mg/dL (<150)
[2025-07-16 13:37] LABS: Thyroid Stimulating Hormone Reflex 0.778 uIU/mL (0.465-4.68)
[2025-07-16 13:45] LABS: Prostate Specific Antigen 2.1 ng/mL (< OR = 4.0)
[2025-07-16 14:04] LABS: Vitamin B12 390.0 pg/mL (239-931)
[2025-07-16 14:28] LABS: Hemoglobin A1C 6.5 % (<5.7)
[2025-07-22 15:09] LABS: Free Testosterone (Direct) 2.5 pg/mL (7.2-24.0)
== END 2025-07-16 10:56 | disposition home or self-care (01) ==
PROVIDERS: PCP Nurse Practitioner Family; Visit Provider Nurse Practitioner Family
DX: R79.89 Other specified abnormal findings of blood chemistry (principal); I10 Essential (primary) hypertension; E55.9 Vitamin D deficiency, unspecified; E78.5 Hyperlipidemia, unspecified; Z12.5 Encounter for screening for malignant neoplasm of prostate; E11.9 Type 2 diabetes mellitus without complications
CPT/HCPCS: 36415; 80053; 80061; 82306; 82607; 83036; 83735; 84153; 84402; 84403; 84443; 85025; G0103